=== PATIENT | female | born 1995 | race Hispanic/Latino ===

== ENCOUNTER 2023-07-13 21:39 | Emergency (ER) | payer OTHER, SELFPAY ==
[2023-07-13 21:50] VITALS: BP 137/75
[2023-07-13 22:22] LABS: % Basophils 0.7 % (0-2); % Eosinophils 1.7 % (0-6); % Immature Granulocytes 0.2 % (0-0.5); % Monocytes 5.4 % (1.7-9.3); Absolute Eosinophils 0.1 10^3/uL (0-0.7); Absolute Lymphocytes 2.1 10^3/uL (1.2-3.4); Absolute Monocytes 0.3 10^3/uL (0.1-0.6); Absolute Neutrophils 3.4 10^3/uL (1.4-6.5); Hematocrit 33.1 % (37.0-47.0); Hemoglobin 10.2 g/dL (12.0-16.0); Mean Corp Hgb Conc. 30.8 g/dL (33.0-37.0); Mean Corpuscular Hgb 22.7 pg (27.0-31.0); Mean Corpuscular Volume 73.7 fL (81.0-99.0); Mean Platelet Volume 12.9 fL (7.4-10.4); Nucleated Red Blood Cells % 0 %; Platelet Count 184 10^3/uL (130-400); Red Blood Cell Count 4.49 10^6/uL (4.20-5.40); Red Cell Dist. Width 14.7 % (11.5-14.5)
[2023-07-13 22:25] LABS: ALT (SGPT) 12 U/L (0-35); AST (SGOT) 19 U/L (14-36); Albumin 4.3 g/dl (3.5-5.0); Alkaline Phosphatase 80 U/L (38-126); Blood Urea Nitrogen 15 mg/dl (7-17); Calcium 9.3 mg/dl (8.4-10.2); Carbon Dioxide 25 mmol/L (22-30); Chloride 106 mmol/L (98-107); Glucose 99 mg/dl (70-99); Potassium 3.9 mmol/L (3.5-5.1); Sodium 140 mmol/L (135-145); Total Bilirubin 0.3 mg/dl (0.2-1.3); Total Protein 7.8 g/dl (6.3-8.2); eGFR > 60.00
[2023-07-13 22:33] LABS: Troponin I < 0.012 ng/ml
== END 2023-07-14 01:49 ==
LOC: EMR 21:39
PROVIDERS: Emergency Medicine
DX: R07.9 Chest pain, unspecified (principal); M25.512 Pain in left shoulder; Z53.21 Procedure and treatment not carried out due to patient leaving prior to being seen by health care provider
CPT/HCPCS: 73030; 80053; 84484; 85025; 93005; 96361; 96374; 96376; 99285

== ENCOUNTER 2023-10-16 14:01 | Emergency (ER) | payer OTHER, SELFPAY ==
[2023-10-16 14:08] VITALS: BP 125/61
[2023-10-16] MEDS: BENADRYL 25 MG PO (14:24)
[2023-10-16 15:04] VITALS: BMI 28.3
[2023-10-16 16:39] LABS: COVID-19 Antigen Negative (Negative)
--- NOTE | 2023-10-16 17:10 | ED.GENMED ---
History of Present Illness
General
Chief Complaint: Allergic Reaction
Source: patient
Exam Limitations: none
Time Seen by Provider: 10/16/23 15:51
Nursing documentation reviewed up to this point in time: agreed with
History of Present Illness
History of Present Illness:
28 y/o F
h/o seasonal allergies
4 days of itchy eyes, nasal congestion and itching, scratchy/itchy throat
no trouble breathing, wheezing, cough, headache, fever, ear ache
took benadryl a few times over these past few dyas, last was 5 am
no known food allergies
no covid exposures
Past History
Past History
ED Past Medical History: None
ED Past Surgical History: None
Social History
Tobacco: Non-smoker
Alcohol: None
Drug: None
Review of Systems
Review of Systems
Allergies reviewed?: Yes
All Other Systems: Not applicable
Phy Exam
Physical Exam
Physical Exam:
GENERAL: Alert , in no apparent distress
EYE: pupils equal and reactive
no facial swelling
NECK: Supple
ENT: b/l TM s clear, pharynx non erythematous no tonsillar hypertrophy or exudates
nasal mucosa erythematous, boggy
some congestion;
CARDIAC: Regular rate and rhythm, no edema
LUNGS: Clear breath sounds bilaterally, no acute respiratory distress, no wheezes/rales/rhonchi, occ cough
SKIN: Warm and dry, skin intact.
no rashes
PSYCH: Normal and appropriate interaction.
Course
Orders/Labs/Results
Orders:
Orders
10/16/23 14:17
Diphenhydramine [Benadryl] 25 mg .ROUTE .STK-MED ONE
10/16/23 14:23
Diphenhydramine [Benadryl] 25 mg PO NOW STA
10/16/23 16:16
COVID-19 Antigen Urgent
Source: Nasal Swab
10/16/23 17:12
Dexamethasone [Decadron] 10 mg PO NOW STA
Vital Signs
Initial and Last Documented VS:
Initial Vital Signs
Temp Pulse Resp BP Pulse Ox
97.9 F 90 20 125/61 99
10/16/23 14:08 10/16/23 14:08 10/16/23 14:08 10/16/23 14:08 10/16/23 14:08
Last Documented Vital Signs
Temp Pulse Resp BP Pulse Ox
97.9 F 66 20 109/71 99
10/16/23 14:08 10/16/23 17:30 10/16/23 14:08 10/16/23 17:30 10/16/23 14:08
MDM/Problems Addressed
Differential Diagnosis Includes:
allergies, allergic reaction, rhinitis
MDM/Problems Addressed:
28 y/o F with allergic rhinitis symptoms
no fever
covid neg
no signs of secnodary bacterial infeciotn
no signs of anaphylaxis
has only tried benadryl
1 dose dex here
zyrtec, fonase
*Critical Care Note
Total Time (30-74mins, 75-104mins- exclusive of procedures): Not Applicable
ED Attending Note
-
Portions of this chart may have been created with voice recognition software.� Occasional wrong word or��sound alike� substitutions may have occurred due to the inherent limitations of voice recognition software.
Discharge Plan
Departure
Patient Disposition: Home (Routine Discharge)
Date of Disposition: 10/16/23
Time of Disposition: 17:10
Patient with high blood pressure during this ER visit?: No
Condition: Fair
Covid-19: Negative COVID-19
Discharge Problem:
Allergic rhinitis
Instructions: Seasonal Allergies ED
Prescriptions:
New
cetirizine [Zyrtec] 10 mg tablet
10 mg PO DAILY PRN (Reason: allergy symptoms) Qty: 20 0RF
fluticasone propionate [Flonase Allergy Relief] 50 mcg/actuation spray,suspension
2 spray intranasal DAILY Qty: 16 0RF
No Action
diclofenac sodium 75 mg tablet,delayed release (DR/EC)
75 mg PO BID 5 Days Qty: 10 0RF
cetirizine 10 mg tablet
10 mg PO DAILY Qty: 14 0RF
Referrals:
Prince Rahman MD [Family Provider] - Follow up in 2-3 days
Activity Restrictions/Additional Instructions:
You were given a one-time dose of steroids to help with the allergic symptoms that you are having. You can also take Zyrtec 10 mg once a day for the next week as well as Flonase 2 sprays each nostril once a day.
Follow-up with your family doctor. Return for trouble breathing,rash, facial swelling, trouble swallowing, or any concern
Interventions
Interventions:
*Risk Screen - Suicide Last Done: 10/16/23 15:05
*General Assessment Last Done: 10/16/23 15:04
*Neglect/Abuse Screening Last Done: 10/16/23 15:05
ED- Fall Risk Assessment Last Done: 10/16/23 17:30
*ED COVID-19 Vaccine History Last Done: 10/16/23 15:04
*Nursing Disposition Last Done: 10/16/23 17:30
ED- Cardiac Assessment Last Done: 10/16/23 15:05
ED- Pulmonary Assessment Last Done: 10/16/23 15:05
ED-Skin Assessment Last Done: 10/16/23 15:05
Discharge Date and Time
Discharge Date/Time: 10/16/23 17:31
Print Language: ISRAELI
[2023-10-16] MEDS: DECADRON 10 MG PO (17:23)
[2023-10-16 17:30] VITALS: BP 109/71
== END 2023-10-16 17:31 | disposition home or self-care (01) ==
LOC: EMR 14:01
PROVIDERS: Physician Assistant; EMERGENCY PHYSICIAN Student in an Organized Health Care Education/Training Program; FAMILY PHYSICIAN Family Medicine
DX: J30.9 Allergic rhinitis, unspecified (principal); Z11.52 Encounter for screening for COVID-19
CPT/HCPCS: 99282; 87811